=== PATIENT | male | born 1955 | race Two or more races ===

== ENCOUNTER 2018-10-12 06:56 | Day surgery (SDC) | payer OTHER ==
[~2018-10-12] VITALS: Ht 160 cm; Wt 0.5 kg
[2018-10-12 07:26] VITALS: BP 124/75
[2018-10-12 11:10] VITALS: BP 136/70
== END 2018-10-12 10:25 | disposition home or self-care (01) ==
LOC: DS 06:56 → GI 07:30 → OR 08:30 → GI 08:30 → DS 10:25
DX: K21.0 Gastro-esophageal reflux disease with esophagitis (principal); K29.50 Unspecified chronic gastritis without bleeding; K31.89 Other diseases of stomach and duodenum; E78.5 Hyperlipidemia, unspecified; I10 Essential (primary) hypertension; E11.9 Type 2 diabetes mellitus without complications; Z79.82 Long term (current) use of aspirin; Z79.4 Long term (current) use of insulin; Z79.899 Other long term (current) drug therapy; Z90.49 Acquired absence of other specified parts of digestive tract; Z79.84 Long term (current) use of oral hypoglycemic drugs; Z98.890 Other specified postprocedural states
CPT/HCPCS: 43235; 43239; J1200; J1610; J2250; J2310; J3010; J3490